=== PATIENT | male | born 1950 | race Caucasian/White ===

== ENCOUNTER 2018-04-23 10:09 | Emergency (ER) | payer OTHER ==
[~2018-04-23] VITALS: Ht 177.8 cm; Wt 91.6 kg
[2018-04-23] MEDS ORDERED: IMDUR 30 MG TAB30 M1 PO (10:28)
[2018-04-23] MEDS ORDERED: ULTRAM 50MG TAB50 MG PO (10:29)
[2018-04-23] MEDS ORDERED: LASIX 20 MG TAB20 MG PO (10:29)
[2018-04-23] MEDS ORDERED: PLAVIX 75 MG TA75 M1 PO (10:29)
[2018-04-23] MEDS ORDERED: CARVEDILOL12.5 MG PO (10:29)
[2018-04-23] MEDS ORDERED: ASPIR 8181 M1 PO (10:29)
[2018-04-23] MEDS ORDERED: LIPITOR40 MG PO (10:30)
[2018-04-23] MEDS ORDERED: LISINOPRIL20 MG PO (10:30)
[2018-04-23 10:38] LABS: HEMATOCRIT 35.9 % (42.0-52.0); HEMOGLOBIN 12.3 gm/dL (14.0-18.0); MCH 32.7 pg (26.0-34.0); MCHC 34.2 g/dL (28.0-37.0); MCV 95.7 fL (80.0-100.0); MPV 8.1 fl. (7.2-11.1); NUCLEATED RBCS 0 /100WBC; PLATELET COUNT* 153 thou/uL (150-400); RBC 3.75 mil/uL (4.50-6.00); RDW-CV 13.4 % (10.5-14.5); WBC 6.3 thou/uL (4.0-11.0)
[2018-04-23 10:45] LABS: APTT 25.7 Seconds (25.0-31.3); PROTIME 10.3 Seconds (9.20-11.50)
[2018-04-23 10:53] LABS: ALBUMIN 3.7 g/dL (3.4-5.0); ALKALINE PHOSPHATASE 74 U/L (46-116); ANION GAP 6 mmol/L (7-16); BUN 20 mg/dL (7-18); CALCIUM 8.9 mg/dL (8.5-10.1); CHLORIDE 102 mmol/L (98-107); CHOLESTEROL 121 mg/dL (<200); CO2 28 mmol/L (21-32); CREATININE 1.1 mg/dL (0.6-1.3); GLUCOSE 130 mg/dL (70-99); HDL CHOLESTEROL 44 mg/dL (>40); LDL CHOLESTEROL 39 mg/dL (<100); MAGNESIUM 2.1 mg/dL (1.8-2.4); POTASSIUM 4.6 mmol/L (3.5-5.1); SGOT 23 U/L (15-37); SGPT 37 U/L (30-65); SODIUM 136 mmol/L (136-145); TC:HDL 2.8 Ratio (Not establshd); TOTAL BILIRUBIN 0.6 mg/dL (<0.1-1.0); TRIGLYCERIDE 194 mg/dL (<150); TROPONIN-I LEVEL <0.06 ng/mL (<0.06); VLDL 39 mg/dL (<40)
[2018-04-23 11:00] LABS: SERUM ASSESSMENT Clear
[2018-04-23 11:05] LABS: ABSOLUTE EOSINOPHILS 0.1 thou/uL (0.0-0.7); ABSOLUTE LYMPHOCYTES 0.3 thou/uL (0.8-5.3); ABSOLUTE MONOCYTES 0.3 thou/uL (0.0-1.2); ABSOLUTE NEUTROPHILS 5.7 thou/uL (1.6-8.1); PLATELET ESTIMATE ADEQUATE
[2018-04-23 11:06] LABS: ANISOCYTOSIS 1+; POIKILOCYTOSIS 1+
[2018-04-23 12:20] VITALS: BP 132/67
--- NOTE | 2018-04-23 16:50 | EKG ---
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
== END 2018-04-23 12:20 | disposition home or self-care (01) ==
LOC: M.ERS 10:09
PROVIDERS: Family Medicine
DX: R55 Syncope and collapse (principal); R42 Dizziness and giddiness; I25.10 Atherosclerotic heart disease of native coronary artery without angina pectoris; Z95.1 Presence of aortocoronary bypass graft

== ENCOUNTER 2020-05-18 06:28 | Emergency (ER) | payer OTHER ==
[~2020-05-18] VITALS: Ht 177.8 cm; Wt 1.2 kg
--- NOTE | ~2020-05-18 | EMS ---
[address] [address] EMS Patient Care Report Name: ARTURO SALDAÑA Room: [facility]#: [id number] Admission: 05/18/20 Attend Phys: Discharge: 05/18/20 Date of : 52 Report #: [id number] THIS REPORT FOR: //name// Report Transmitted: 05/18/2020 10:05 EMS Care Summary [facility] Incident [id number] @ 05/18/2020 05:32 Incident Location [address] [place] [address] Patient ARTURO SALDAÑA Male, 70 Years 1950 Patient Address [address] [place] [address] Patient History Hypertension (HTN),Hyperlipidemia,Cardiac - Stent,Myocardial Infarction ([place]), Patient Allergies No known allergies, Patient Medications Atorvastatin, ASA, Lisinopril, Tylenol, Clopidogrel, Tramadol, Amlodipine, Ranolazine, Metoprolol, Isosorbide, Chief Complaint Chest Pain Disposition Transported No Lights/[place] Dispatch Reason Chest Pain (Non-Traumatic) Transported To [facility] Narrative Dispatch: [facility] was dispatched for a male patient experiencing chest pain. Med 1 copied tones and went en route emergent. [address] [address] EMS Patient Care Report Name: ARTURO SALDAÑA Room: [facility]#: [id number] Admission: 05/18/20 Attend Phys: Discharge: 05/18/20 Date of : 52 Report #: [id number] Chief Complaint: Med 1 arrived on scene to find the patient standing outside of his residence. Patient is alert and does not appear to be in any distress or discomfort. Patient states he is experiencing chest pain and has been for approx. 1 week. Patient states his chest pain is a dull aching feeling and rates his pain a 3/10. History of present illness/PK: Patient states he had a cardiac stent placed 2 weeks prior. Patient states he is unable to distinguish between cardiac chest pain and indigestion. Assessment: Airway: Clear, patent, and self maintained. Breathing: Clear, and equal bilaterally. Non labored. Circulation: Skin is pink, warm, and dry. Strong radial pulses. Disability: A&OX4, GCS 15. Exposures: No life threats were found. See "assessments" tab for further. Reason for ambulance: Patient is experiencing chest pain, requesting EMS treatment and transport to [place]. Treatments: ALS assessment. 12 lead EKG showing normal sinus rhythm. 20G IV LAC. ASA. Vitals monitored throughout transport. Summary: With the assistance of EMS, the patient was placed onto the cot, secured in place, and placed into the ambulance for transport. The patient was placed onto the monitor and an IV was established. Med 1 went en route non emergent to [place]. The patient's overall condition remained the same throughout transport. Radio report was given and no further questions or orders were received. Med 1 arrived at destination and the patient was taken to room 7 in the ED where he was able to self ambulate onto the bed. Report was given and signatures and paperwork were received. Med 1 returned back in service. Initial Vitals @06:19P: 73,BP: 144/73, @05:59P: 70,SpO2: 94, @05:47P: 73,R: 18,BP: 146/73,GCS: 15,Glucose: 108,SpO2: 96,Revised Trauma: 12, @06:04P: 71,BP: 144/73,SpO2: 94, @06:14P: 76,SpO2: 94, @06:20P: 73,R: 18,SpO2: 94, Assessments @06:00MENTAL:Person Oriented,Time Oriented,Place Oriented,Event Oriented,SKIN:HEENT:LUNG SOUNDS:ABDOMEN:PELVIS//GI:EXTREMITIES:Capillary Refill: Right Upper: < 2 Sec,PULSE:Radial: 2+ Normal,NEURO:@06:02MENTAL:Person Oriented,Time Oriented,Place Oriented,Event Oriented,SKIN:[place]ENT:[place] [address] EMS Patient Care Report Name: ARTURO SALDAÑA Room: [facility]#: [id number] Admission: 05/18/20 Attend Phys: Discharge: 05/18/20 Date of : 52 Report #: [id number] SOUNDS:ABDOMEN:PELVIS//GI:EXTREMITIES:Capillary Refill: Right Upper: < 2 Sec,PULSE:Radial: 2+ Normal,NEURO: Impression Chest Pain, Other (Non-Cardiac) Procedures @05:59ALS AssessmentResponse: UnchangedSucceeded@06:00Saline Lock 0cc (20 ga) Site: Antecubital-LeftResponse: UnchangedSucceeded@06:00Aspirin - 243 Milligrams (mg) - OralResponse: Unchanged@06:2012-Lead ECGResponse: UnchangedSucceeded@05:4712-Lead ECGResponse: UnchangedSucceeded Timeline 05:32,Call Received 05:32,Dispatched 05:34,En Route 05:40,On Scene 05:40,At Patient 05:47,12-Lead ECG,Response: UnchangedSucceeded, 05:47,BP: 146/73 M,PULSE: 73,RR: 18 R,SPO2: 96 Ox,ETCO2: ,B,PAIN: ,GCS: 15, 05:50,Depart Scene 05:59,BP: / M,PULSE: 70,RR: R,SPO2: 94 Ox,ETCO2: ,BG: ,PAIN: ,GCS: , 05:59,ALS Assessment,Response: UnchangedSucceeded, 06:00,Saline Lock 0cc 20 ga Site: Antecubital-Left,Response: UnchangedSucceeded, 06:00,Aspirin - 243 Milligrams (mg) - Oral,Response: Unchanged 06:04,BP: 144/73 M,PULSE: 71,RR: R,SPO2: 94 Ox,ETCO2: ,BG: ,PAIN: ,GCS: , 06:14,BP: / M,PULSE: 76,RR: R,SPO2: 94 Ox,ETCO2: ,BG: ,PAIN: ,GCS: , 06:19,BP: 144/73 M,PULSE: 73,RR: R,SPO2: Ox,ETCO2: ,BG: ,PAIN: ,GCS: , 06:20,12-Lead ECG,Response: UnchangedSucceeded, 06:20,BP: / M,PULSE: 73,RR: 18 R,SPO2: 94 Ox,ETCO2: ,BG: ,PAIN: ,GCS: , 06:28,At Destination 07:07,Call Closed Disclaimer v1.1 Copyright 2020 [employer] This EMS Care Summary contains data elements from the applicable legal record (which may be displayed differently). It is designed to provide pertinent information for the following purposes: continuity of care, clinical quality, and state data reporting. The complete legal record is available to ED staff and administrators of the receiving hospital in [employer]'s Patient Tracker. All data is provided "as is."
[~2020-05-18 06:28] MED LIST: ASPIR 8181 M1 PO; CARVEDILOL12.5 MG PO; IMDUR 30 MG TAB30 M1 PO; LASIX 20 MG TAB20 MG PO; LIPITOR40 MG PO; LISINOPRIL20 MG PO; PLAVIX 75 MG TA75 M1 PO; ULTRAM 50MG TAB50 MG PO
[2020-05-18] MEDS ORDERED: TOPROL XL100 MG PO (06:37)
[2020-05-18] MEDS ORDERED: NORVASC10 MG PO (06:37)
[2020-05-18] MEDS ORDERED: RANOLAZINE ER500 MG PO (06:38)
[2020-05-18 06:51] LABS: ABSOLUTE EOSINOPHILS 0.1 thou/uL (0.0-0.7); ABSOLUTE MONOCYTES 0.4 thou/uL (0.0-1.2); BASOPHILS 0.4 %; EOSINOPHILS 1.2 %; HEMATOCRIT 37.7 % (42.0-52.0); MCH 32.2 pg (26.0-34.0); MCHC 34.6 g/dL (28.0-37.0); MCV 93.2 fL (80.0-100.0); MONOCYTES 7.5 %; MPV 7.6 fl. (7.2-11.1); NUCLEATED RBCS 0 /100WBC; PLATELET COUNT* 162 thou/uL (150-400); POLYS 71.9 %; RBC 4.04 mil/uL (4.50-6.00); RDW-CV 13.2 % (10.5-14.5); WBC 5.5 thou/uL (4.0-11.0)
[2020-05-18 07:02] LABS: CALCIUM 8.9 mg/dL (8.5-10.1); CREATININE 0.8 mg/dL (0.6-1.3); POTASSIUM 4.1 mmol/L (3.5-5.1)
[2020-05-18 07:03] LABS: PROTIME 10.8 Seconds (9.20-11.50)
[2020-05-18 07:12] LABS: ALBUMIN 3.5 g/dL (3.4-5.0); TOTAL BILIRUBIN 0.5 mg/dL (<0.1-1.0); TOTAL PROTEIN 6.7 g/dL (6.4-8.2)
--- NOTE | 2020-05-18 09:22 | EKG ---
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1950 Requested By: Anne Israel Order Number: [id number] MD: Bill Ware Measurements Intervals [place] Rate: 68 P: 73 [place]: 167 QRS: 57 QRSD: 104 T: 93 QT: 424 QTc: 451 Interpretive Statements Sinus rhythm Right precordial ST segment depression; ischemia must be considered Compared to ECG 04/23/2018 10:21:11 Right bundle-branch block no longer present and there has been some evolution of right precordial ST-T alterations Electronically Signed On 05-18-2020 9:22:46 CDT by Bill Ware [email or web address] <ELECTRONICALLY SIGNED> By: Bill Ware MD, [facility] 05/18/20 0922 0 0 Bill Ware MD, FAC /EPI
[2020-05-18 09:30] VITALS: BP 117/59
== END 2020-05-18 09:31 | disposition home or self-care (01) ==
LOC: M.ERS 06:28
PROVIDERS: Emergency Medicine
DX: R07.89 Other chest pain (principal); I10 Essential (primary) hypertension; I25.10 Atherosclerotic heart disease of native coronary artery without angina pectoris; Z95.1 Presence of aortocoronary bypass graft